=== PATIENT | male | born 1950 | race Caucasian/White ===

== ENCOUNTER 2017-08-13 06:36 | Day surgery (SDC) | payer MEDICARE ==
[~2017-08-13] VITALS: Ht 177.8 cm; Wt 92.3 kg
[~2017-08-13 06:36] MED LIST: ASPI81 PO; COQ-10CA; FENO160T2 PO; IMDU30TA PO; LOSA50; METF500 PO; METO50CR PO; NITR0.4S SL; PRAS10TA PO; [UNRECOGNIZED DRUG - CODE]
[2017-08-13] MEDS ORDERED: IOHEXOL 350 MG/ML 100 ML BTL (for Cath Lab) OTHER ONE (06:37)
[2017-08-13 07:09] VITALS: BP 162/90; PULSE 61; RESP 18; O2SAT 97
[2017-08-13] MEDS ORDERED: CO Q10CA (07:18)
[2017-08-13] MEDS ORDERED: ISOS120T PO (07:18)
[2017-08-13] MEDS ORDERED: CLOP75TA PO (07:18)
[2017-08-13] MEDS ORDERED: METF500T PO (07:18)
[2017-08-13] MEDS ORDERED: NITR1SUB3 SL (07:18)
[2017-08-13] MEDS ORDERED: ATOR10TA15 PO (07:18)
[2017-08-13] MEDS ORDERED: ASPI-516 CHEW (07:18)
[2017-08-13] MEDS ORDERED: METO1TAB9 PO (07:18)
[2017-08-13] MEDS ORDERED: LOSA50TA PO (07:18)
[2017-08-13] MEDS ORDERED: EZET1TAB8 PO (07:18)
[2017-08-13] MEDS ORDERED: MILK140C2 (07:18)
[2017-08-13] MEDS ORDERED: OMEGCAP PO (07:18)
[2017-08-13] MEDS ORDERED: VITA100C4 (07:18)
[2017-08-13 07:32] LABS: AUTOMATED NEUTROPHIL # 3.5 TH/MM3 (1.8-7.7); BASOPHIL % 0.6 % (0.0-2.0); EOSINOPHIL # 0.2 TH/MM3 (0-0.4); EOSINOPHIL % 2.9 % (0.0-4.0); HEMATOCRIT 44.7 % (39.0-51.0); HEMOGLOBIN 15.1 GM/DL (13.0-17.0); LYMPH % 29.1 % (9.0-44.0); LYMPHOCYTE # 1.8 TH/MM3 (1.0-4.8); MEAN CELL VOLUME 82.7 FL (80.0-100.0); MEAN CORPUSCULAR HEMOGLOBIN 27.9 PG (27.0-34.0); MEAN CORPUSCULAR HGB CONC 33.7 % (32.0-36.0); MEAN PLATELET VOLUME 8.9 FL (7.0-11.0); MONO % 10.3 % (0.0-8.0); MONOCYTE # 0.6 TH/MM3 (0-0.9); NEUT % 57.1 % (16.0-70.0); PLATELET COUNT 158 TH/MM3 (150-450); RED BLOOD COUNT 5.41 MIL/MM3 (4.50-5.90); WHITE BLOOD COUNT 6.1 TH/MM3 (4.0-11.0)
[2017-08-13 07:41] LABS: INTERNATIONAL NORMALIZED RATIO 1.1 RATIO; PROTHROMBIN TIME - PATIENT 11.1 SEC (9.8-11.6)
[2017-08-13] MEDS ORDERED: ASPIRIN 325 MG TAB PO SCH (07:45)
[2017-08-13] MEDS ORDERED: NS 1000P @30 MLS/HR (KVO) IV SCH (07:45)
[2017-08-13 07:51] LABS: BICARBONATE 22.3 MEQ/L (21.0-32.0); CALCIUM 9.3 MG/DL (8.5-10.1); CREATININE 1.12 MG/DL (0.60-1.30)
[2017-08-13 07:55] LABS: CHOLESTEROL/ HDL RATIO 2.58 RATIO; HDL CHOLESTEROL 47.5 MG/DL (40.0-60.0)
[2017-08-13] MEDS ORDERED: HEPARIN-NS/PF INJ 1,000 ML ONE (08:15)
[2017-08-13] MEDS ORDERED: MIDAZOLAM HCL 2 MG/2 ML VIAL ONE (08:18)
[2017-08-13] MEDS ORDERED: NITROGLYCERIN 400 MCG/SPRAY 4.9 GM BOTTLE SL ONE (08:59)
--- NOTE | 2017-08-13 09:43 | CATHPROC ---
codebender HIS Report Study Information Study Number Admission Scheduled Start Study Start [id number] Aug 13 2017 6:36AM 08/13/2017 Aug 13 2017 7:58AM [facility] Cardiac Catheterization Admit Source Facility Department Other [facility] and Clinical Staff Initial MD Strickland, Ayo Third Miller Christina Balderas,RN Recorder Dang Ortiz,SCIENCE EDUCATION PROFESSOR TECH2 Scrub Froy, Nila,RT(R) Procedures Performed Procedure Location (Site) Vessel Name Angiogram LV LV Ventricle Coronary Angiograms LCA Left Coronary Coronary Angiograms RCA Right Coronary Coronary Angiograms Iliac R. Com. (R4) Illiac Art. L Heart Cath Equipment Time Pageant Director Description Size Mfg Part Number Used/Scraped TRANSDUCER, TRUWAVE [id number] 07:59 LAYNE REDDY * Used W/STOCKCOCK *[id number] [id number] *[id number] [id number] *[id number] [id number] *[id number] PIGTAIL ANG. 145 INFINITI 534-652S CATHETER *[id number] 09:28 DAIG/[employer]. K[employer] MEDICAL ANGIOSEAL, FR6 VIP FR 6 Used *[id number] 07:59 AGILE customer insight BLANKET,WARM AIR CCL * Used *[id number] 07:59 AGILE customer insight PACK, CCL CUSTOM * Used *[id number] 07:59 MEDLINE PACER PEN, SKIN DUAL W/ RULER * Used *[id number] 07:59 twtMob MEDICAL SHEATH, FR6.5 PRELUDE 11CM FR 6.5 038ACT Used *[id number] 07:59 twtMob MEDICAL WIRE, 3MMJ .035 180CM 180CM Used *[id number] 07:59 NAMIC MANIFOLD, 4 PORT * Used *[id number] 07:59 NYCOMED OMNIPAQUE, 350 MG, 150ML 150ML [id number] Used 09:07 NYCOMED OMNIPAQUE, 350 MG, 50ML 50ML [id number] Used Equipment Model, Serial, Lot Number and Expiration Data Description Model Number Serial Number Lot Number Expiration Date ANGIOSEAL, FR6 VIP [id number] 03-25-2018 History: Current Medications Medication Dosage/Unit Route Frequency Last Date/Time Taken ASA BRILINTA Glucophage Statins (any) NTG SL History: Allergies Allergy Reaction No Known Allergies KENDRICK Inhibitors Cough Qqqjoxq-Huz-Uqz Reductase MUSCLE WEAKNESS Inhibitor History: Risk Factors Family History of Hypertension Dyslipidemia Previous MS Previous Heart Failure Premature CAD Yes Yes Yes No No Prior Valve Prior PCI Prior PCIDate Prior CABG Surgery No Yes 11/22/2016 No Cerebrovascular Peripheral Artery Chronic Lung On Dialysis Diabetes Diabetes Therapy Disease Disease Disease No No No No Yes Oral History: Symptoms/Diagnosis Selection Items Chest pain History: CV Disease Selection Items Known CAD History: Stress Tests Stress or Imaging Studies Performed No History: Other Disease Selection Items CAD HTN History: MS/CV Data Previous Cath Date 11/22/2016 History: Other Current Smoker Method Quit Packs a Day Years Used Pack Years No Cigarettes 25 Years Ago 1 15 15 Labs Hgb (g/dl) Hct (%) WBC (l/cumm) Platelets (thousands) 11.60-17.00 35.00-51.00 4.00-11.00 150.00-450.00 15.1 44.7 6.1 158 Glucose (mg/dl) BUN (mg/dl) Creatinine (mg/dl) BUN:Creatinine (1:x) 74.00-106.00 7.00-18.00 0.50-1.30 10.00-20.00 200 19 1.1 17.3 Na (meq/l) K (meq/l) 136.00-145.00 3.50-5.10 139 4.2 Medication Medication Total Dose (Bolus/Oral) Medication Total Dosage/Unit 1% XYLOCAINE 20 mL FENTANYL 50 mcg NITROGLYCERIN S/L 0.4 mg VERSED 2 mg Medications (Bolus/Oral) Medication Time Given Dosage/Unit Administered By Reason VERSED 08/13/2017 8:43:22 AM 1 mg Christina Balderas 1 mg VERSED given in lab by Christina Balderas, RN in Left Antecubital via Peripheral IV. VERSED 08/13/2017 8:45:05 AM 1 mg Christina Balderas 1 mg VERSED given in lab by Christina Balderas, REINA in Left Antecubital via Peripheral IV. 1% XYLOCAINE 08/13/2017 8:47:44 AM 20 mL Ayo Strickland 20 mL 1% XYLOCAINE given in lab by Ayo Strickland in Right Groin via Subcutaneous. FENTANYL 08/13/2017 8:48:37 AM 50 mcg Ayo Strickland 50 mcg FENTANYL given in lab by Ayo Strickland in Right Groin via Peripheral IV. NITROGLYCERIN S/L 08/13/2017 9:00:04 AM 0.4 mg Christina Balderas 0.4 mg NITROGLYCERIN S/L given in lab by Christina Balderas, RN via Sublingual. Ordered by Ayo Strickland . Medication (Drip) Medication Time Given Dosage/Unit Concentration/Unit Diluent (ml) Solution IV Solutions 08/13/2017 8:06:56 AM 50 mL (IV) 500 NaCl .9 IV Solutions given in lab by Christina Balderas, RN in Left Antecubital via Peripheral IV. Pump/Drip Yayo w using NaCl .9. Initial Case Assessment Cardiovascular HR NIBP Chest Pain 65 165/88 0 Edema Present Skin color Skin None Normal Warm Dry Circulatory - Right Pulses Dorsalis Pedis Femoral 2 2 Scale (0,1,2,3,4,d) Circulatory - Left Pulses Dorsalis Pedis Femoral 2 2 Scale (0,1,2,3,4,d) Neurological State Oriented to time-place- Alert person Respiration - General Respiration Rate SpO2 (%) (B/min) 15 97 Final Case Assessment Cardiovascular HR NIBP Chest Pain 56 156/81 0 Edema Present Skin color Skin None Normal Warm Dry Circulatory - Right Pulses Dorsalis Pedis Femoral 2 2 Scale (0,1,2,3,4,d) Circulatory - Left Pulses Dorsalis Pedis Femoral 2 2 Scale (0,1,2,3,4,d) Neurological State Oriented to time-place- Alert person Respiration - General Respiration Rate SpO2 (%) (B/min) 12 96 Chronological Log Time Study Chronological Log 8:03:37 Patient arrived via Bed. 8:06:42 Patient Name, D.O.B, / Armband Verified By R.N. 8:06:43 Consent signed by the physician and the patient and verified by the [facility] staff. 8:06:44 Pre-op and post- op instructions given; patient acknowledges understanding of instructions. 8:06:46 Presedation assessment performed by [facility] RN. 8:06:49 Patient has been NPO for Less than 6Hrs. 8:06:50 NO Skin Breakdown- 8:06:51 Patient Warmer Placed on the Table. 8:06:54 A # 20 IV was noted in the Antecubital (left). Grade = 0 8:06:56 IV Solutions given in lab by Christina Balderas RN in Left Antecubital via Peripheral IV. Pum p/Drip Flow using NaCl .9. 8:06:57 History and physical on the chart or being dictated. Vitals capture started with the following parameters, Patient=Adult, Interval=5 min, Initial Pr mshcxo=289 mmHg, 8:06:59 Deflation Rate=5 mmHg, Cuff placed on Left Arm 8:08:26 HR=65 bpm, NDPF=070/88 mmhg, SpO2=97.0 %, Resp=15 B/min, Pain=0, Nick=10, Farah=2 Assessment: Initial Case, HR=65 BPM, GEUN=798/88 mmhg, Chest Pain=0, Edema=None, Color=Normal, Skin = Warm, Dry Right Pulses: Clark Ped=2, Femoral=2 8:10:33 Left Pulses: Clark Ped=2, Femoral=2 Neurological: State=Alert, Ox3 Respiration: Resp=15 B/min, SpO2=97 % 8:12:46 HR=64 bpm, ELYE=262/85 mmhg, SpO2=97.0 %, Resp=11 B/min, Pain=0, Nick=10, Farah=2 8:15:24 Bilateral groins prepped with 2% chlorhexidine, and draped after a 3 minute waiting time. 8:18:26 HR=65 bpm, CNGN=243/94 mmhg, SpO2=96.0 %, Resp=15 B/min, Pain=0, Nick=10, Farah=2 8:19:57 Reference ECG taken 8:22:25 Pressure channel 1 zeroed. 8:23:23 HR=57 bpm, ILSE=667/88 mmhg, SpO2=97.0 %, Resp=11 B/min, Pain=0, Nick=10, Farah=2 8:27:51 HR=60 bpm, FAOW=333/84 mmhg, SpO2=97.0 %, Resp=11 B/min, Pain=0, Nick=10, Farah=2 8:32:44 HR=60 bpm, LJCP=185/84 mmhg, SpO2=97.0 %, Resp=12 B/min, Pain=0, Nick=10, Farah=2 8:37:47 HR=61 bpm, CSNB=761/82 mmhg, SpO2=97.0 %, Resp=13 B/min, Pain=0, Nick=10, Farah=2 8:42:46 HR=63 bpm, LOXJ=105/89 mmhg, SpO2=96.0 %, Resp=11 B/min, Pain=0, Nick=10, Farah=2 8:43:22 1 mg VERSED given in lab by Christina Balderas, RN in Left Antecubital via Peripheral IV. Time Out. Correct patient, correct procedure, correct physician, labs, allergies, and equipment verified with laborer gold [place] 8:43:59 team present. Fire risk assesment completed (see hard stop sheet for coding). Time Out Concu rred by and individual staff in procedure. 8:44:00 LV INJECTOR LOADED WITH CONTRAST AND VERIFIED TO BE FREE OF AIR BY CHRISTINA BALDERAS RN 8:44:06 Case Start 8:45:05 1 mg VERSED given in lab by Christina Balderas, RN in Left Antecubital via Peripheral IV. 8:47:44 20 mL 1% XYLOCAINE given in lab by Ayo Strickland in Right Groin via Subcutaneous. 8:47:49 HR=60 bpm, WNKK=397/82 mmhg, SpO2=95.0 %, Resp=12 B/min, Pain=0, Nick=10, Farah=2 8:48:37 50 mcg FENTANYL given in lab by Ayo Strickland in Right Groin via Peripheral IV. 8:50:33 Access site was Right Femoral Artery. 8:50:43 A SHEATH, FR6.5 PRELUDE 11CM FR 6.5 was advanced into the Fem Art (right) using the Modified Seldinger technique. A 3DRC INFINITI CATHETER FR 6 was advanced over a wire. OMNIPAQUE, 350 MG, 150ML 150ML was used for 8:51:14 injections. Recorded Pressure: Ao, HR=60, Condition=Condition 1 8:52:21 (Aorta) Ao 132/69/94 8:52:46 HR=62 bpm, HOHQ=119/78 mmhg, SpO2=93.0 %, Resp=12 B/min, Pain=0, Nick=10, Farah=2 8:53:11 The RCA was injected and visualized at various angles. OMNIPAQUE, 350 MG, 150ML 150ML used. After removing the current catheter a AL 2 INFINITI CATHETER FR 6 was advanced over a WIRE, 3MMJ .035 180CM 8:54:37 180CM. 8:56:44 The LCA was injected and visualized at various angles. OMNIPAQUE, 350 MG, 150ML 150ML used. 8:57:43 HR=61 bpm, SHMO=953/79 mmhg, SpO2=94 %, Resp=18 B/min, Pain=0, Nick=10, Farah=2 8:59:33 Patient complaining of chest pain 9:00:04 0.4 mg NITROGLYCERIN S/L given in lab by Christina Balderas RN via Sublingual. Ordered by Ayo Juarez. 9:02:30 The LCA was injected and visualized at various angles. OMNIPAQUE, 350 MG, 150ML 150ML used. 9:03:19 HR=70 bpm, NJTF=762/70 mmhg, SpO2=94 %, Resp=12 B/min, Pain=0, Nick=10, Farah=2 After removing the current catheter a PIGTAIL ANG. 145 INFINITI CATHETER FR 6 was advanced over a WIRE, 3MMJ 9:03:19 .035 180CM 180CM. Recorded Pressure: LV, HR=60, Condition=Condition 1 9:05:44 (Left Ventricle) LV 136/8/15 9:06:50 The LV was injected at 10 cc/sec for a total of 30. OMNIPAQUE, 350 MG, 50ML 50ML used. Recorded Pressure: LV, Ao, HR=62, Condition=Condition 1 9:07:26 (Left Ventricle) LV 137/12/17, (Aorta) Ao 134/71/97 9:07:47 HR=68 bpm, GRAK=354/77 mmhg, SpO2=95.0 %, Resp=12 B/min, Pain=0, Nick=10, Farah=2 9:12:48 HR=63 bpm, SRMN=784/80 mmhg, SpO2=95.0 %, Resp=11 B/min, Pain=0, Nick=10, Farah=2 9:17:47 HR=59 bpm, GXJF=549/78 mmhg, SpO2=95.0 %, Resp=10 B/min, Pain=0, Nick=10, Farah=2 9:22:46 HR=60 bpm, PMAW=617/82 mmhg, SpO2=95.0 %, Resp=11 B/min, Pain=0, Nick=10, Farah=2 9:25:00 The Iliac R. Com. (R4) was injected and visualized at various angles. OMNIPAQUE, 350 MG, 1 50ML 150ML used. 9:26:00 Catheter was removed 9:26:55 An injection in the Fem Art (right) was made through the SHEATH, FR6.5 PRELUDE 11CM FR 6.5 . 9:27:00 Catheter(s) removed without difficulty 9:27:52 HR=55 bpm, ROFI=213/79 mmhg, SpO2=95.0 %, Resp=16 B/min, Pain=0, Nick=10, Farah=2 9:30:12 ANGIOSEAL, FR6 VIP FR 6 placement in the Fem Art (right) 9:30:21 Case End (Physician broke scrub) 9:30:29 Sterile dressing applied to site 9:30:31 No case complications noted. 9:30:33 Cine recording checked. 9:30:35 Bedside Report will be given. 9:30:37 Implantable Device card placed in patient's chart. 9:30:39 A Left Heart Cath was performed. 9:32:51 HR=56 bpm, YHCK=933/81 mmhg, SpO2=96.0 %, Resp=12 B/min, Pain=0, Nick=10, Farah=2 Assessment: Final Case, HR=56 BPM, MWRK=849/81 mmhg, Chest Pain=0, Edema=None, Color=Normal, S kin = Warm, Dry Right Pulses: Clark Ped=2, Femoral=2 9:36:00 Left Pulses: Clark Ped=2, Femoral=2 Neurological: State=Alert, Ox3 Respiration: Resp=12 B/min, SpO2=96 % 9:36:14 Vitals capture stopped. 9:39:41 Patient moved to stretcher End Study - Contrast Media Used In Study Contrast Total Opened (mL) Total Used (mL) Total Wasted (mL) Omnipaque 100 100 0 End Study - Maximum Contrast Load Max Contrast Load (mL) 419.6 End Study - Radiation Exposure Fluoro Time (minutes) 6.6 End Study - Patient Disposition Complications Transferred To No Telemetry Bed
[2017-08-13] MEDS ORDERED: SODIUM CHLORIDE 0.9% FLUSH 10 ML FLUSH IV FLUSH PRN (09:45)
[2017-08-13] MEDS ORDERED: BACITRACIN OINT 0.9 GM PKT TOP ONE (09:45)
[2017-08-13] MEDS ORDERED: SODIUM CHLOR 0.9% 1000 ML INJ 1,000 ML IV SCH (09:45)
[2017-08-13] MEDS ORDERED: METOCLOPRAMIDE HCL 10 MG/2 ML VIAL IV PUSH PRN (09:45)
--- NOTE | 2017-08-13 10:19 | MA ---
cc: Ayo Strickland MD,Felecia Huerta,Hebert Armando MD DATE: 08/13/2017 PROCEDURE PERFORMED: Left heart catheterization, left ventriculography, coronary angiography, abdominal aortography, right femoral angiography with Angio-Seal placement. INDICATIONS FOR PROCEDURE: Pelon Bridges is a 67-year-old man who is needing to undergo resection of bladder tumors. He has known coronary artery disease. On 11/15/2014 I stented the proximal LAD with a 2.75 x 18 mm drug-eluting stent. I had to do kissing balloons for the diagonal branch, using a 3.0 Non-Compliant balloon in the LAD and a 2.5 mm balloon in the diagonal branch with good results. He continued to have angina. On 12/06/2014, I stented the distal portion of the obtuse marginal branch with a 2.25 x 12 mm drug-eluting stent with good results. Then for increasing angina on 11/19/2016 I stented the proximal circumflex vessel utilizing a 3.0 x 16 mm Synergy stent. I have used an XB 3.5 guiding catheter for that procedure. I have used a left 2 Amplatz for the LAD since they have separate origins. He comes in now with class 2 angina and would like to have this fixed if he can. DESCRIPTION OF PROCEDURE: The patient was brought to the cardiac catheterization lab in a fasting state. Using 1% lidocaine for local anesthesia, a 6.5-Spanish sheath was inserted in the right femoral artery. Next, coronary angiography was completed. I used a 3DRC for the right coronary artery. I used a left 2 Amplatz for both the LAD and the circumflex vessels. I then studied his films. I decided to treat him medically. An angled pigtail catheter was used for LV gram and a pullback. Also, did an injection of the abdominal aorta. I then obtained angiography through the sheath and uncomplicated Angio-Seal placement with good hemostasis. There were no complications. FINDINGS: I. HEMODYNAMICS: Left ventricular pressure is 137/12 with an end-diastolic pressure of 17. Aortic pressure is 134/71 with a mean of 97. There is no gradient during pullback from left ventricle to the aorta. II. LEFT VENTRICULOGRAPHY: Left ventriculography shows normal left ventricular function. EF is about 60%. III. CORONARY ANGIOGRAPHY: The left anterior descending artery and left circumflex arteries have separate origins off the left cusp. Left anterior descending artery has diffuse 25% proximal disease with some mild pressure damping. Distal to this is the proximal LAD stent, which is widely patent. Coming out of this is a major diagonal branch which has 20% ostial disease and diffuse irregularities. The mid-LAD has about 25% disease and there are diffuse irregularities throughout the LAD system. Circumflex artery is nondominant. The proximal circumflex at the site of previous stenting is widely patent. The distal part of the stent probably jails a very tiny first obtuse marginal branch which has 80% disease. Then in the mid-circumflex vessel the vessel trifurcates to an atrial branch, a posterolateral branch and the major obtuse marginal branch. There is disease at this trifurcation that appears to be about 50% before the trifurcation and about 60-70% at the origin of the OM and distal circumflex vessels. There is a stent in the mid to distal portion of the obtuse marginal branch which is widely patent. Right coronary artery is dominant. This vessel has about 25% proximal eccentric disease and diffuse 10% irregularities. This vessel is also dominant. IV. ABDOMINAL AORTOGRAM: There is diffuse disease of the abdominal aorta and iliac vessels. There is about a 40% ostial right common iliac stenosis. The right external iliac is noted to be tortuous. CONCLUSIONS: 1. Mildly elevated left ventricular end-diastolic pressure. 2. Normal left ventricular systolic function. 3. All three previous stents are widely patent. 4. His angina is coming most likely from the circumflex bifurcation. The disease at this level does not appear to be critical. It is a very complicated lesion because it represents a trifurcation with diffuse disease. The obtuse marginal branch is only about 2.25 mm in size. The distal circumflex is about 2.5 mm in size. RECOMMENDATIONS: I would recommend medical management unless he absolutely fails medical therapy. Interventional procedure would require jailing of the obtuse marginal branch and would have a 5-10% risk of complications. MD RUBEN Porter/LESLIE , 09:43 AM , 10:17 AM
--- NOTE | 2017-08-13 18:49 | EKG ---
Date Performed: 08/13/2017 Time Performed: 07:27:30 PTAGE: 67 years EKG: Sinus bradycardia. Inferior T wave changes are nonspecific Borderline ECG Since the PREVIOUS TRACING , no significant change noted PREVIOUS TRACIN12/07/2014 05.50 DOCTOR: Aimee Cordero Interpretating Date/Time 08/13/2017 18:47:10
[2017-08-13] MEDS ORDERED: SODIUM CHLORIDE 0.9% FLUSH 10 ML FLUSH IV FLUSH SCH (21:00)
== END 2017-08-13 13:19 | disposition home or self-care (01) ==
LOC: HDOC 06:36 → HDIC 06:37 → HDOC 13:19
PROVIDERS: ATTEND Internal Medicine Cardiovascular Disease
DX: I25.10 Atherosclerotic heart disease of native coronary artery without angina pectoris (principal); Z79.01 Long term (current) use of anticoagulants; Z79.899 Other long term (current) drug therapy; E11.9 Type 2 diabetes mellitus without complications; Z79.84 Long term (current) use of oral hypoglycemic drugs; R00.1 Bradycardia, unspecified
CPT/HCPCS: 80048; 80061; 85025; 85610; 85730; 93005; 93458; 99152; 99153; C1760; C1769; C1893; G0269; J1644; J2250; J3010; Q9967